=== PATIENT | male | born 2000 | race Caucasian/White ===

== ENCOUNTER 2023-09-22 03:15 | Emergency (ER) | payer MEDICAID, OTHER ==
[~2023-09-22] VITALS: Ht 188 cm; Wt 86.2 kg
[2023-09-22] MEDS ORDERED: AMOXICILLIN-CLAVUL 875-125MG TABLET PO ONE (04:00)
[2023-09-22] MEDS ORDERED: AMOX-430 PO (04:09)
[2023-09-22] MEDS ORDERED: TDAP DIPH,PERTUSS,TET VAC/PF 0.5 ML DISP.SYRIN IM ONE ×2 (04:15→04:17)
[2023-09-22] MEDS ORDERED: AMOXICILLIN-CLAVUL 875-125MG TABLET ONE (04:16)
[2023-09-22 04:36] VITALS: BP 116/82; TEMP 98.1; O2SAT 98
== END 2023-09-22 04:37 | disposition home or self-care (01) ==
LOC: ER 03:19
DX: I89.1 Lymphangitis (principal); J40 Bronchitis, not specified as acute or chronic; F41.9 Anxiety disorder, unspecified; Z79.899 Other long term (current) drug therapy; W53.11XA Bitten by rat, initial encounter; Y93.89 Activity, other specified; Y92.89 Other specified places as the place of occurrence of the external cause; Y99.8 Other external cause status
CPT/HCPCS: 90715; A4606; A4663